=== PATIENT | male | born 1970 | race African-American/Black ===

== ENCOUNTER 2024-06-28 09:51 | Emergency (ER) | payer MEDICAID ==
[~2024-06-28] VITALS: Ht 177.8 cm; Wt 90.0 kg
[~2024-06-28 09:51] MED LIST: AMLO5TAB88 PO; ASPI-1160 PO; ATOR20TA PO; COR6 PO; FURO-151 PO; HCTZ; LOSA-413; ZANTAC
[2024-06-28 09:57] VITALS: O2SAT 98
[2024-06-28 12:25] LABS: BASOPHILS % 0.5 % (0.0-2.0); EOSINOPHILS % 1.7 % (0.0-5.0); HEMATOCRIT. 50.4 % (42.0-52.0); HEMOGLOBIN. 16.1 g/dL (14.0-18.0); MEAN CORPUSCULAR HEMOGLOBIN 28.9 pg (28.0-32.0); MEAN CORPUSCULAR VOLUME 90.2 fL (80.0-94.0); MEAN PLATELET VOLUME 7.5 fl (7.4-10.4); MONOCYTES % 5.4 % (2.0-8.0); NEUTROPHILS % 72.4 % (40.0-76.0); PLATELET 198 x1000/uL (130-400); RED BLOOD CELL COUNT 5.59 mill/uL (4.7-6.1); RED CELL DISTRIBUTION WIDTH 15.7 % (11.6-14.6)
[2024-06-28 12:47] LABS: CARBON DIOXIDE 26 mEq/L (21-32); CHLORIDE 109 mEq/L (98-107); POTASSIUM 4.7 mEq/L (3.5-5.1); SODIUM 138 mEq/L (136-145)
[2024-06-28 12:48] LABS: CALCIUM 9.9 mg/dL (8.7-10.4)
[2024-06-28 12:53] LABS: CREATININE 1.6 mg/dL (0.6-1.3); GLUCOSE 128 mg/dL (70-105); UREA NITROGEN BLOOD 18 mg/dL (9-23)
[2024-06-28 12:54] LABS: TROPONIN I HIGH SENSITIVITY 25 ng/L (3.0-53)
[2024-06-28 13:46] VITALS: BP 124/84; PULSE 86; RESP 19; TEMP 36.8; O2SAT 95
== END 2024-06-28 13:49 | disposition home or self-care (01) ==
LOC: ER 10:26
DX: R07.89 Other chest pain (principal); I11.0 Hypertensive heart disease with heart failure; I50.9 Heart failure, unspecified; I48.91 Unspecified atrial fibrillation; Z79.82 Long term (current) use of aspirin; Z79.899 Other long term (current) drug therapy
CPT/HCPCS: 80048; 83880; 85025; 84484; 36415; 71045; 93005; 99285; Z7610 ×3; A4606